=== PATIENT | male | born 1995 | race American Indian/Alaskan Native ===

== ENCOUNTER 2020-12-11 11:08 | Emergency (ER) | payer SELFPAY ==
[2020-12-11 11:27] VITALS: BP 143/64
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
== END 2020-12-11 13:19 | disposition home or self-care (01) ==
LOC: ED 11:08
DX: S39.012A Strain of muscle, fascia and tendon of lower back, initial encounter (principal); S16.1XXA Strain of muscle, fascia and tendon at neck level, initial encounter; Z79.899 Other long term (current) drug therapy; V49.59XA Passenger injured in collision with other motor vehicles in traffic accident, initial encounter; Y93.89 Activity, other specified; Y92.488 Other paved roadways as the place of occurrence of the external cause; Y99.8 Other external cause status
CPT/HCPCS: 72040; 72100; 99283

== ENCOUNTER 2021-01-09 06:11 | Emergency (ER) | payer SELFPAY ==
[2021-01-09 06:48] VITALS: BP 142/68
--- NOTE | 2021-01-09 08:36 | Emergency Department Report ---
ED General Adult HPI - General Chief complaint: Eye Problems Stated complaint: eye PAIN Time Seen by Provider: 01/09/21 07:37 Source: patient Mode of arrival: Ambulatory Limitations: No Limitations - History of Present Illness Initial comments: 25-year-old -[place] male patient presents with complaints of right eye itching, burning, and drainage for 1 week. He states his eyes started to crust shut upon waking in the morning about 2 days ago. He rates his pain as a 5/10 in severity and denies any vision changes, contact lens wearing, headache, or skin changes. No past medical history per patient. Severity scale (0 -10): 0 - Related Data Previous Rx's Medication Instructions Recorded Last Taken Type Naproxen [EC-Naprosyn] 500 mg PO BID PRN #20 tablet. 12/11/20 Unknown Rx Erythromycin [Erythromycin Ophth 1 cm OU Q3H 7 Days #1 tube 01/09/21 Unknown Rx Oint] Allergies Allergy/AdvReac Type Severity Reaction Status Date / Time No Known Allergies Allergy Unverified 12/11/20 11:26 ED Review of Systems ROS: Stated complaint: eye PAIN Other details as noted in HPI Constitutional: denies: chills, fever Eyes: eye pain. denies: vision change Respiratory: denies: cough, shortness of breath Skin: denies: rash Neurological: denies: headache, numbness, paresthesias Hematological/Lymphatic: denies: swollen glands ED Past Medical Hx - Past Medical History Previous Medical History?: No - Surgical History Past Surgical History?: No - Social History Smoking Status: Never Smoker Substance Use Type: None - Medications Home Medications: Home Medications Medication Instructions Recorded Confirmed Last Taken Type Naproxen [EC-Naprosyn] 500 mg PO BID PRN #20 tablet. 12/11/20 Unknown Rx Erythromycin [Erythromycin Ophth 1 cm OU Q3H 7 Days #1 tube 01/09/21 Unknown Rx Oint] ED Physical Exam - General Limitations: No Limitations General appearance: alert, in no apparent distress - Head Head exam: Present: atraumatic, normocephalic - Expanded Eye Exam Expanded Sclera/Conjunctival: Injection: Right, Exudate: Right (No periorbital swelling or tenderness noted) - Neck Neck exam: Present: normal inspection - Respiratory Respiratory exam: Absent: respiratory distress - Cardiovascular Cardiovascular Exam: Present: regular rate - Neurological Exam Neurological exam: Present: alert, oriented X3 - Psychiatric Psychiatric exam: Present: normal affect, normal mood - Skin Skin exam: Present: warm, dry, intact, normal color. Absent: rash, cyanosis, erythema ED Course Vital Signs 01/09/21 06:47 Temperature 98.2 F Pulse Rate 65 Respiratory 20 Rate Blood Pressure 142/68 [Right] O2 Sat by Pulse 98 Oximetry ED Medical Decision Making - Medical Decision Making 25-year-old -[place] male patient presents with complaints of right eye itching, burning, and drainage for 1 week. He states his eyes started to crust shut upon waking in the morning about 2 days ago. He rates his pain as a 5/10 in severity and denies any vision changes, contact lens wearing, headache, or skin changes. No past medical history per patient. Right eye conjunctivitis noted on exam. Will treat with erythromycin ointment. Recommend follow-up primary care in 3 to 5 days. His vitals are normal, he is well-appearing, he is stable for discharge home. Strict return precautions were discussed in detail with patient who verbalizes understanding. Critical care attestation.: If time is entered above; I have spent that time in minutes in the direct care of this critically ill patient, excluding procedure time. ED Disposition Clinical Impression: Bacterial conjunctivitis of right eye Disposition: [id number]-01 TO HOME OR SELFCARE Is pt being admited?: No Condition: Stable Instructions: Bacterial Conjunctivitis, Adult Prescriptions: Erythromycin [Erythromycin Ophth Oint] 1 cm OU Q3H 7 Days #1 tube Referrals: PRIMARY CARE [Primary Care Provider] - 3-5 Days [facility] [Provider Group] - 3-5 Days Forms: Work/School Release Form(ED)
== END 2021-01-09 08:43 | disposition home or self-care (01) ==
LOC: ED 06:11
DX: H10.9 Unspecified conjunctivitis (principal); B96.89 Other specified bacterial agents as the cause of diseases classified elsewhere; Z79.899 Other long term (current) drug therapy
CPT/HCPCS: 99281